=== PATIENT | male | born 1965 | race Caucasian/White ===

== ENCOUNTER 2019-08-02 08:50 | Emergency (ER) | payer MEDICAID, OTHER ==
[~2019-08-02] VITALS: Ht 182.9 cm; Wt 86.4 kg
[~2019-08-02 08:50] MED LIST: KEP500T PO
[2019-08-02 09:13] VITALS: BP 119/83
[2019-08-02] MEDS ORDERED: TRAM50TA2 PO ×2 (10:39→10:50)
[2019-08-02] MEDS ORDERED: KEP500T PO (10:39)
== END 2019-08-02 11:16 | disposition home or self-care (01) ==
LOC: ER 08:51
DX: M25.571 Pain in right ankle and joints of right foot (principal); Z76.0 Encounter for issue of repeat prescription; Z59.0 Homelessness; Z56.0 Unemployment, unspecified; Z88.5 Allergy status to narcotic agent; Z88.6 Allergy status to analgesic agent
CPT/HCPCS: 73610; 99283